=== PATIENT | female | born 1970 | race Caucasian/White ===

== ENCOUNTER → 2016-09-09 | Outpatient (REF) | payer OTHER ==
[2016-09-09 12:07] LABS: BASO % 0.9 % (0.0-1.0); EOS # 0.1 K/mm3 (0.0-0.50); EOS % 1.5 % (0.0-3.0); LARGE UNSTAINED CELL # 0.1 K/mm3 (0.0-0.4); LARGE UNSTAINED CELL % 1.9 % (0.0-4.0); LYMPH # 1.3 K/mm3 (1.5-4.5); MEAN CORPUSCULAR HEMOGLOBIN 30.2 pg (27.0-33.0); MEAN CORPUSCULAR VOLUME 94.3 fl (80.0-96.0); MONO # 0.3 K/mm3 (0.0-0.8); MONO % 7.5 % (0.0-5.0); NEUTROPHILS # 2.4 K/mm3 (1.8-7.7); NEUTROPHILS % 59.3 % (36.0-66.0); PLATELET COUNT, AUTOMATED 342 k/mm3 (150-450); RED CELL DISTRIBUTION WIDTH 12.5 % (11.5-14.5)
[2016-09-09 12:12] LABS: VITAMIN B12 LEVEL 1203 PG/ML (247-911)
[2016-09-09 12:20] LABS: ALBUMIN 4.1 GM/DL (3.2-5.2); ALBUMIN/GLOBULIN RATIO 1.41 (1.00-1.93); ALKALINE PHOSPHATASE 60 U/L (45-117); ALT/SGPT 20 U/L (12-78); ANION GAP 6 MEQ/L (8-16); AST/SGOT 16 U/L (15-37); BILIRUBIN,TOTAL 0.5 MG/DL (0.2-1.0); BLOOD UREA NITROGEN 23 MG/DL (7-18); CALCIUM LEVEL 9.3 MG/DL (8.5-10.1); CARBON DIOXIDE LEVEL 31 MEQ/L (21-32); CHLORIDE LEVEL 106 MEQ/L (98-107); CHOLESTEROL LEVEL 144 MG/DL (<200); CREATININE FOR GFR 0.77 MG/DL (0.55-1.02); GLOMERULAR FILTRATION RATE > 60.0 (>58); GLUCOSE, FASTING 88 MG/DL (70-105); POTASSIUM SERUM 4.6 MEQ/L (3.5-5.1); SODIUM LEVEL 143 MEQ/L (136-145); TRIGLYCERIDES LEVEL 47 MG/DL (<150)
== END ==
LOC: M SFHCPLAZ 09:04
PROVIDERS: ATTEND Physician Assistant
DX: R59.0 Localized enlarged lymph nodes (principal); Z13.220 Encounter for screening for lipoid disorders; R55 Syncope and collapse; Z98.84 Bariatric surgery status

== ENCOUNTER → 2017-01-31 | Outpatient (REF) | payer OTHER | LOC: M SFHCWAGY 14:08 | PROVIDERS: ATTEND Nurse Practitioner Family | DX: Z12.4 Encounter for screening for malignant neoplasm of cervix (principal) ==

== ENCOUNTER → 2017-01-31 | Outpatient (CLI) | payer OTHER ==
--- NOTE | 2017-01-31 15:57 | REPMRS ---
Patient History The patient states she had a clinical breast exam in 01/2017. Family history of prostate cancer in maternal grandfather at age 50 or over and prostate cancer in maternal uncle at age 50 or over. Benign radio exam breast specimen, January 12, 2016. Benign localization of breast nodule of the right breast, January 12, 2016. Benign stereotatic breast biopsy of the left breast, 2006. Benign excisional biopsy of both breasts, 1986. Taking hormonal contraceptives for 7 years. Digital Woman Screen Mammo: January 31, 2017 - Exam #: [id number] Bilateral CC and MLO view(s) were taken. Technologist: Deja Schmitz, Technologist Prior study comparison: December 19, 2015, right breast digital mammo diagnostic unilateral, performed at [facility]. December 16, 2015, digital woman screen mammo performed at [facility]. FINDINGS: The breast tissue is heterogeneously dense. This may lower the sensitivity of mammography. There is a needle biopsy marker clip in the left breast. There is a moderate amount of heterogeneously dense fibroglandular tissue which is fairly symmetric. There is no interval development of dominant mass, architectural distortion, or clustered microcalcification typical of malignancy. There has been no change in the appearance of the mammogram from the prior studies. ASSESSMENT: BI-RADS/ACR category 2 mammogram. Benign finding(s). Recommendation Routine screening mammogram of both breasts in 1 year (for women over age 40). This mammogram was interpreted with the aid of an FDA-approved computer-aided dectection system. Electronically Signed By: Steven Flores MD 01/31/17 [id number]
== END ==
LOC: M WHC 13:22
PROVIDERS: ATTEND Nurse Practitioner Family
DX: Z12.31 Encounter for screening mammogram for malignant neoplasm of breast (principal)

== ENCOUNTER → 2017-11-02 | Outpatient (CLI) | payer OTHER | LOC: M WUC 08:26 | DX: M25.471 Effusion, right ankle (principal); M25.571 Pain in right ankle and joints of right foot | CPT/HCPCS: 73610 ==

== ENCOUNTER → 2017-11-22 | Outpatient (REF) | payer OTHER ==
[2017-11-22 12:10] LABS: BASO # 0.1 10^3/uL (0.0-0.2); BASO % 1.5 % (0.0-1.0); EOS # 0.1 10^3/uL (0.0-0.50); EOS % 1.3 % (0.0-3.0); HEMATOCRIT 38.4 % (36.0-47.0); HEMOGLOBIN 12.5 g/dl (12.0-15.5); IMMATURE GRANULOCYTE % 0.5 % (0-3.0); LYMPH # 1.1 10^3/uL (1.5-4.5); LYMPH % 27.9 % (24.0-44.0); MEAN CORPUSCULAR HEMOGLOBIN 30.3 pg (27.0-33.0); MEAN CORPUSCULAR HGB CONC 32.6 g/dl (32.0-36.5); MONO # 0.4 10^3/uL (0.0-0.8); MONO % 9.9 % (0.0-5.0); NEUTROPHILS # 2.3 10^3/uL (1.8-7.7); NEUTROPHILS % 58.9 % (36.0-66.0); PLATELET COUNT, AUTOMATED 371 10^3/uL (150-450); RED BLOOD COUNT 4.13 10^6/uL (4.00-5.40); RED CELL DISTRIBUTION WIDTH 13.6 % (11.5-14.5); WHITE BLOOD COUNT 3.9 10^3/uL (4.0-10.0)
[2017-11-22 12:39] LABS: TOTAL 25(OH) VITAMIN D 40.3 NG/ML (30.0-100.0); VITAMIN B12 LEVEL 1270 PG/ML (247-911)
[2017-11-22 12:40] LABS: FOLATE 15.3 NG/ML (>5.4)
[2017-11-22 17:30] LABS: ALBUMIN/GLOBULIN RATIO 1.25 (1.00-1.93); ALKALINE PHOSPHATASE 70 U/L (45-117); ALT/SGPT 15 U/L (12-78); ANION GAP 6 MEQ/L (8-16); AST/SGOT 16 U/L (7-37); BILIRUBIN,TOTAL 0.5 MG/DL (0.2-1.0); BLOOD UREA NITROGEN 19 MG/DL (7-18); CALCIUM LEVEL 9.1 MG/DL (8.5-10.1); CARBON DIOXIDE LEVEL 31 MEQ/L (21-32); CHLORIDE LEVEL 107 MEQ/L (98-107); CHOLESTEROL LEVEL 141 MG/DL (<200); CHOLESTEROL RISK RATIO 1.566 (<5); CREATININE FOR GFR 0.72 MG/DL (0.55-1.30); FERRITIN 34 NG/ML (8-252); GLOMERULAR FILTRATION RATE > 60.0 (>58); GLUCOSE, FASTING 87 MG/DL (70-100); HDL CHOLESTEROL 90 MG/DL (>40); IRON (FE) 131 UG/DL (50-170); LDL CHOLESTEROL 36.8 MG/DL (<100); NON-HDL-C 51 MG/DL; PERCENT SATURATION 37.6 % (13.2-45.0); POTASSIUM SERUM 4.4 MEQ/L (3.5-5.1); SODIUM LEVEL 144 MEQ/L (136-145); THYROID STIMULATING HORMONE 0.926 uIU/ML (0.358-3.740); TOTAL IRON BINDING CAPACITY 348 UG/DL (250-450); TOTAL PROTEIN 7.2 GM/DL (6.4-8.2); TRIGLYCERIDES LEVEL 71 MG/DL (<150)
== END ==
LOC: M SFHCPLAZ 09:16
DX: Z98.84 Bariatric surgery status (principal); Z13.220 Encounter for screening for lipoid disorders; F32.9 Major depressive disorder, single episode, unspecified

== ENCOUNTER → 2017-12-21 | Outpatient (CLI) | payer OTHER ==
[2017-12-21 15:03] LABS: VITAMIN B12 LEVEL 792 PG/ML (247-911)
== END ==
LOC: M WUC 12:36
DX: Z98.84 Bariatric surgery status (principal); M79.645 Pain in left finger(s)

== ENCOUNTER → 2018-01-13 | Outpatient (CLI) | payer OTHER ==
[2018-01-13 13:16] LABS: C REACTIVE PROTEIN QUANTITATIV < 0.30 MG/DL (0.00-0.30)
[2018-01-13 13:43] LABS: ERYTHROCYTE SEDIMENTATION RATE 5 mm/hr (0-20)
== END ==
LOC: M WUC 08:58
DX: S93.401D Sprain of unspecified ligament of right ankle, subsequent encounter (principal); X58.XXXD Exposure to other specified factors, subsequent encounter; Y92.9 Unspecified place or not applicable
CPT/HCPCS: 86140

== ENCOUNTER → 2018-02-02 | Outpatient (CLI) | payer OTHER | LOC: M WHC 11:05 | DX: Z12.31 Encounter for screening mammogram for malignant neoplasm of breast (principal) ==

== ENCOUNTER → 2018-02-27 | Outpatient (REF) | payer OTHER | LOC: M SFHCWAGY 11:32 | DX: R87.612 Low grade squamous intraepithelial lesion on cytologic smear of cervix (LGSIL) (principal) ==

== ENCOUNTER 2018-02-28 09:42 | Outpatient (RCR) | payer OTHER | END 2018-03-05 | LOC: M OT 09:42 | DX: S56.114A Strain of flexor muscle, fascia and tendon of left middle finger at forearm level, initial encounter (principal); Y92.89 Other specified places as the place of occurrence of the external cause; X58.XXXA Exposure to other specified factors, initial encounter; Y93.89 Activity, other specified; Y99.8 Other external cause status | CPT/HCPCS: 97140 ==

== ENCOUNTER 2018-03-06 07:08 | Outpatient (RCR) | payer OTHER | END 2018-04-05 | LOC: M OT 03-15 07:47 | DX: S56.114A Strain of flexor muscle, fascia and tendon of left middle finger at forearm level, initial encounter (principal); Y92.89 Other specified places as the place of occurrence of the external cause; Y93.89 Activity, other specified; Y99.8 Other external cause status; X58.XXXA Exposure to other specified factors, initial encounter | CPT/HCPCS: 97140 ==

== ENCOUNTER → 2018-11-21 | Outpatient (CLI) | payer OTHER ==
[2018-11-21 09:04] LABS: HEMATOCRIT 38.3 % (36.0-47.0); HEMOGLOBIN 12.7 g/dl (12.0-15.5); MEAN CORPUSCULAR HEMOGLOBIN 30.3 pg (27.0-33.0); MEAN CORPUSCULAR HGB CONC 33.2 g/dl (32.0-36.5); MEAN CORPUSCULAR VOLUME 91.4 fl (80.0-96.0); PLATELET COUNT, AUTOMATED 356 10^3/uL (150-450); RED BLOOD COUNT 4.19 10^6/uL (4.00-5.40); WHITE BLOOD COUNT 3.6 10^3/uL (4.0-10.0)
[2018-11-21 09:39] LABS: ALBUMIN 3.9 GM/DL (3.2-5.2); ALT/SGPT 17 U/L (12-78); BILIRUBIN,TOTAL 0.6 MG/DL (0.2-1.0); BLOOD UREA NITROGEN 16 MG/DL (7-18); CALCIUM LEVEL 8.9 MG/DL (8.5-10.1); CARBON DIOXIDE LEVEL 31 MEQ/L (21-32); CHLORIDE LEVEL 104 MEQ/L (98-107); CHOLESTEROL LEVEL 139 MG/DL (<200); CHOLESTEROL RISK RATIO 1.616 (<5); CREATININE FOR GFR 0.84 MG/DL (0.55-1.30); FERRITIN 29 NG/ML (8-252); FOLATE 20.3 NG/ML (>5.4); FREE T4 0.93 NG/DL (0.76-1.46); GLOMERULAR FILTRATION RATE > 60.0 (>51); GLUCOSE, FASTING 80 MG/DL (70-100); HDL CHOLESTEROL 86 MG/DL (>40); IRON (FE) 149 UG/DL (50-170); LDL CHOLESTEROL 42 MG/DL (<100); NON-HDL-C 53 MG/DL; PERCENT SATURATION 45.2 % (13.2-45.0); POTASSIUM SERUM 4.4 MEQ/L (3.5-5.1); SODIUM LEVEL 139 MEQ/L (136-145); TOTAL IRON BINDING CAPACITY 330 UG/DL (250-450); TOTAL PROTEIN 6.9 GM/DL (6.4-8.2); TRIGLYCERIDES LEVEL 53 MG/DL (<150); VITAMIN B12 LEVEL 823 PG/ML (247-911)
== END ==
LOC: M WUC 08:11
PROVIDERS: ATTEND Physician Assistant
DX: Z13.220 Encounter for screening for lipoid disorders (principal); Z98.84 Bariatric surgery status; E55.9 Vitamin D deficiency, unspecified; F32.9 Major depressive disorder, single episode, unspecified

== ENCOUNTER → 2019-02-01 | Outpatient (CLI) | payer OTHER ==
[~2019-02-01] MED LIST: B-122500 PO; BIOT1TAB PO; CITRTAB13 PO; CVS10CAP7 PO; D200CAP2 PO; ESTRCAP PO; LISI10TA4 PO; NO ITAB PO; ULTR5TAB PO; VITA500C24 PO
--- NOTE | 2019-02-01 13:52 | REPMRS ---
Patient History The patient states she had a clinical breast exam in 01/2019. Family history of prostate cancer at age 50 or over in maternal grandfather, prostate cancer at age 50 or over in maternal uncle, prostate cancer at age 50 or over in maternal uncle. Benign radio exam breast specimen, January 12, 2016. Benign localization of breast nodule of the right breast, January 12, 2016. Benign stereotatic breast biopsy of the left breast, 2006. Benign excisional biopsy of both breasts, 1986. Taking hormonal contraceptives for 9 years. Digital Woman Screen Mammo: February 01, 2019 - Exam #: [id number] Bilateral CC and MLO view(s) were taken. Technologist: Veena Martínez, Technologist Prior study comparison: February 02, 2018, bilateral digital woman screen mammo performed at [facility]. January 31, 2017, digital woman screen mammo performed at [facility]. December 16, 2015, digital woman screen mammo performed at [facility]. FINDINGS: The breast tissue is extremely dense which could obscure a lesion on mammography. There is mild postoperative contour deformity in the right breast unchanged. A needle biopsy marker clip is again noted in the left breast. There is an extremely dense symmetrical pattern of residual fibroglandular tissue. There has been no change in the appearance of the mammogram from the previous studies. There is no interval development of dominant mass, archetectural distortion, or grouped microcalcifications suggestive of malignancy. 3-D tomosynthesis shows no additional findings. Assessment: BI-RADS/ACR category 2 mammogram. Benign Findings. Recommendation Routine screening mammogram of both breasts in 1 year (for women over age 40). This patient's Lifetime Breast Cancer RIsk is estimated at 10.2 %. This mammogram was interpreted with the aid of an FDA-approved computer-aided dectection system. Electronically Signed By: Steven Flores MD 02/01/19 8002
== END ==
LOC: M WHC 11:06
PROVIDERS: ATTEND Nurse Practitioner Family
DX: Z12.31 Encounter for screening mammogram for malignant neoplasm of breast (principal)

== ENCOUNTER → 2019-02-01 | Outpatient (REF) | payer OTHER ==
[~2019-02-01] MED LIST changes: -LISI10TA4 PO
[2019-02-03 15:01] LABS: HPV HYBRID CAPTURE II Positive (Negative)
== END ==
LOC: M SFHCWAGY 12:04
PROVIDERS: ATTEND Nurse Practitioner Family
DX: Z12.4 Encounter for screening for malignant neoplasm of cervix (principal)
CPT/HCPCS: 87624; G0123

== ENCOUNTER → 2019-02-16 | Outpatient (CLI) | payer OTHER ==
[~2019-02-16] MED LIST changes: +LISI10TA4 PO
[2019-02-16 09:30] LABS: BLOOD UREA NITROGEN 24 MG/DL (7-18); CALCIUM LEVEL 9.3 MG/DL (8.5-10.1); CARBON DIOXIDE LEVEL 29 MEQ/L (21-32); CHLORIDE LEVEL 105 MEQ/L (98-107); CREATININE, URINE 77.7 MG/DL; GLOMERULAR FILTRATION RATE > 60.0 (>51); GLUCOSE, FASTING 78 MG/DL (70-100); POTASSIUM SERUM 4.7 MEQ/L (3.5-5.1); SODIUM LEVEL 140 MEQ/L (136-145)
== END ==
LOC: M WUC 08:07
PROVIDERS: ATTEND Nurse Practitioner Family
DX: I10 Essential (primary) hypertension (principal)

== ENCOUNTER 2019-02-20 07:03 | Day surgery (SDC) | payer OTHER ==
[~2019-02-20] VITALS: Ht 165.1 cm; Wt 56.7 kg
[~2019-02-20 07:03] MED LIST changes: -LISI10TA4 PO; +NS 1,000 ML IV ONE
[2019-02-20] MEDS ORDERED: LISI10TA4 PO (07:20)
[2019-02-20] MEDS ORDERED: PROPOFOL 500 MG/50 ML VIAL As Ordered ONE (08:20)
[2019-02-20] MEDS ORDERED: LIDOCAINE 2% INJ 100 MG/5 ML SDV (FOR ANES.) As Ordered ONE (08:20)
--- NOTE | 2019-02-20 09:06 | ROOR ---
Patient Name: Mar Hernandez Procedure Date: 02/20/2019 8:09 AM Date of : 1970 Age: 48 Room: [facility] Gender: Female Note Status: Finalized Procedure: Colonoscopy Indications: Screening for colorectal malignant neoplasm Providers: Jordy Hunter MD Referring MD: Aysha Alvarenga NP Requesting Provider: Medicines: Monitored Anesthesia Care Complications: No immediate complications. Procedure: Pre-Anesthesia Assessment: - Prior to the procedure, a History and Physical was performed, and patient medications and allergies were reviewed. The patient is competent. The risks and benefits of the procedure and the sedation options and risks were discussed with the patient. All questions were answered and informed consent was obtained. Patient identification and proposed procedure were verified by the physician, the nurse and the anesthesiologist in the procedure room. Mental Status Examination: alert and oriented. Airway Examination: normal oropharyngeal airway and neck mobility. Respiratory Examination: clear to auscultation. CV Examination: normal. Prophylactic Antibiotics: The patient does not require prophylactic antibiotics. Prior Anticoagulants: The patient has taken no previous anticoagulant or antiplatelet agents. ASA Grade Assessment: II - A patient with mild systemic disease. After reviewing the risks and benefits, the patient was deemed in satisfactory condition to undergo the procedure. The anesthesia plan was to use monitored anesthesia care (MAC). Immediately prior to administration of medications, the patient was re-assessed for adequacy to receive sedatives. The heart rate, respiratory rate, oxygen saturations, blood pressure, adequacy of pulmonary ventilation, and response to care were monitored throughout the procedure. The physical status of the patient was re-assessed after the procedure. The Colonoscope was introduced through the anus and advanced to the terminal ileum, with identification of the appendiceal orifice and IC valve. The colonoscopy was performed without difficulty. The patient tolerated the procedure well. The quality of the bowel preparation was poor. The terminal ileum, ileocecal valve, appendiceal orifice, and rectum were photographed. Scope insertion time was 4 minutes. Scope withdrawal time was 8 minutes. The total duration of the procedure was 12 minutes. Findings: The perianal and digital rectal examinations were normal. The terminal ileum appeared normal. A large amount of semi-liquid semi-solid stool was found from sigmoid to ascending colon, interfering with visualization. Lavage of the area was performed using a large amount of sterile water, resulting in clearance with fair visualization. Non-bleeding external and internal hemorrhoids were found during retroflexion. The hemorrhoids were small. Impression: - Preparation of the colon was poor. - The examined portion of the ileum was normal. - Stool from sigmoid to ascending colon. - Non-bleeding external and internal hemorrhoids. - No specimens collected. Recommendation: - Patient has a contact number available for emergencies. The signs and symptoms of potential delayed complications were discussed with the patient. Return to normal activities tomorrow. Written discharge instructions were provided to the patient. - High fiber diet. - Continue present medications. - Recommend laxative daily. (script sent for senna+ colace combination capsule). - Repeat colonoscopy in 1 year because the bowel preparation was poor. - Return to GI clinic in 1 year. - Return to primary care physician. Jordy Hunter MD Jordy Hunter MD 02/20/2019 9:05:48 AM Electronically signed by Jordy Hunter MD Number of Addenda: 0 Note Initiated On: 02/20/2019 8:09 AM Estimated Blood Loss: Estimated blood loss: none.
[2019-02-20 09:15] VITALS: BP 105/70
== END 2019-02-20 09:21 | disposition home or self-care (01) ==
LOC: M OPP 07:03
PROVIDERS: ATTEND Internal Medicine Gastroenterology
DX: Z12.11 Encounter for screening for malignant neoplasm of colon (principal); K64.8 Other hemorrhoids; Z98.84 Bariatric surgery status

== ENCOUNTER 2019-02-27 11:52 | Outpatient (RCR) | payer OTHER ==
[~2019-02-27 11:52] MED LIST changes: +LISI10TA4 PO; -NS 1,000 ML IV ONE
== END 2019-03-05 ==
LOC: M PT 11:52
PROVIDERS: ATTEND Nurse Practitioner Family
DX: Z51.89 Encounter for other specified aftercare (principal); N81.10 Cystocele, unspecified; N81.2 Incomplete uterovaginal prolapse; N39.46 Mixed incontinence

== ENCOUNTER → 2019-03-12 | Outpatient (REF) | payer OTHER | LOC: M SFHCWAGY 11:48 | PROVIDERS: ATTEND Nurse Practitioner Women's Health | DX: N85.8 Other specified noninflammatory disorders of uterus (principal) ==

== ENCOUNTER 2019-04-26 14:47 | Outpatient (RCR) | payer OTHER | END 2019-05-05 | LOC: M PT 14:47 | PROVIDERS: ATTEND Nurse Practitioner Family | DX: Z51.89 Encounter for other specified aftercare (principal); N81.10 Cystocele, unspecified; N81.2 Incomplete uterovaginal prolapse; N39.46 Mixed incontinence ==

== ENCOUNTER 2019-05-22 08:00 | Outpatient (RCR) | payer OTHER | END 2019-06-05 | LOC: M PT 08:00 | PROVIDERS: ATTEND Nurse Practitioner Family | DX: N81.10 Cystocele, unspecified (principal); N39.46 Mixed incontinence ==

== ENCOUNTER → 2019-09-04 | Outpatient (CLI) | payer OTHER ==
[~2019-09-04] MED LIST changes: -CITRTAB13 PO; +CITRTAB16 PO
[2019-09-04 11:01] LABS: BLOOD UREA NITROGEN 11 MG/DL (7-18); CALCIUM LEVEL 9.2 MG/DL (8.5-10.1); CARBON DIOXIDE LEVEL 29 MEQ/L (21-32); CHLORIDE LEVEL 102 MEQ/L (98-107); CREATININE FOR GFR 0.76 MG/DL (0.55-1.30); GLOMERULAR FILTRATION RATE > 60.0 (>51); GLUCOSE, FASTING 87 MG/DL (70-100); POTASSIUM SERUM 4.5 MEQ/L (3.5-5.1); SODIUM LEVEL 137 MEQ/L (136-145)
== END ==
LOC: M WUC 09:34
PROVIDERS: ATTEND Nurse Practitioner Family
DX: I10 Essential (primary) hypertension (principal)

== ENCOUNTER → 2020-02-28 | Outpatient (REF) | payer OTHER ==
[~2020-02-28] MED LIST changes: +MAGN1CAP PO; +MIRA3350 PO
== END ==
LOC: M SFHCWAGY 17:48
PROVIDERS: ATTEND Nurse Practitioner Family
DX: Z12.4 Encounter for screening for malignant neoplasm of cervix (principal); N95.2 Postmenopausal atrophic vaginitis
CPT/HCPCS: 87624; G0123

== ENCOUNTER → 2020-02-28 | Outpatient (CLI) | payer OTHER ==
[2020-02-28 11:41] LABS: ALBUMIN 3.8 GM/DL (3.2-5.2); ALT/SGPT 16 U/L (12-78); BILIRUBIN,TOTAL 0.4 MG/DL (0.2-1.0); BLOOD UREA NITROGEN 16 MG/DL (7-18); CALCIUM LEVEL 9.1 MG/DL (8.5-10.1); CARBON DIOXIDE LEVEL 31 MEQ/L (21-32); CHLORIDE LEVEL 103 MEQ/L (98-107); CHOLESTEROL LEVEL 151 MG/DL (<200); CHOLESTEROL RISK RATIO 1.715 (<5); CREATININE FOR GFR 0.71 MG/DL (0.55-1.30); GLOMERULAR FILTRATION RATE > 60.0 (>51); GLUCOSE, FASTING 73 MG/DL (70-100); HDL CHOLESTEROL 88 MG/DL (>40); LDL CHOLESTEROL 55 MG/DL (<100); NON-HDL-C 63 MG/DL; POTASSIUM SERUM 4.7 MEQ/L (3.5-5.1); SODIUM LEVEL 138 MEQ/L (136-145); TOTAL PROTEIN 6.8 GM/DL (6.4-8.2); TRIGLYCERIDES LEVEL 42 MG/DL (<150)
[2020-02-28 11:46] LABS: TOTAL 25(OH) VITAMIN D 65.1 NG/ML (30.0-100.0)
== END ==
LOC: M WUC 08:06
PROVIDERS: ATTEND Nurse Practitioner Family
DX: I10 Essential (primary) hypertension (principal); E55.9 Vitamin D deficiency, unspecified

== ENCOUNTER → 2020-02-28 | Outpatient (CLI) | payer OTHER ==
--- NOTE | 2020-02-28 14:01 | REPMRS ---
Patient History The patient states she had a clinical breast exam in 02/2020. Family history of prostate cancer at age 50 or over in maternal grandfather, prostate cancer at age 50 or over in maternal uncle, prostate cancer at age 50 or over in maternal uncle. Benign radio exam breast specimen, January 12, 2016. Benign localization of breast nodule of the right breast, January 12, 2016. Benign stereotatic breast biopsy of the left breast, 2006. Benign excisional biopsy of both breasts, 1986. Taking hormonal contraceptives for 10 years. 3D TOMOSYNTHESIS WAS PERFORMED. The [facility] lifetime risk for breast cancer is 10.1%. DESMOND Magallanes Digital Woman Screen Mammo: February 28, 2020 - Exam #: [id number] Bilateral CC and MLO view(s) were taken. Technologist: Deja Schmitz, Technologist Prior study comparison: February 01, 2019, bilateral digital woman screen mammo performed at [facility]. February 02, 2018, bilateral digital woman screen mammo performed at [facility]. FINDINGS: The breast tissue is extremely dense which could obscure a lesion on mammography. There has been no change in the appearance of the mammogram from the prior studies. There is a moderate amount of residual fibroglandular tissue which is fairly symmetric. There is no interval development of dominant mass, areas of architectural distortion, or clustered microcalcification typical of malignancy. Assessment: BI-RADS/ACR category 1 mammogram. Negative Mammogram. Recommendation Routine screening mammogram in 1 year (for women over age 40). This mammogram was interpreted with the aid of an FDA-approved computer-aided dectection system. Electronically Signed By: Steven Flores MD 02/28/20 1400
== END ==
LOC: M WHC 11:22
PROVIDERS: ATTEND Nurse Practitioner Family
DX: Z12.31 Encounter for screening mammogram for malignant neoplasm of breast (principal); Z86.018 Personal history of other benign neoplasm; Z79.3 Long term (current) use of hormonal contraceptives

== ENCOUNTER → 2020-03-13 | Outpatient (CLI) | payer OTHER ==
[~2020-03-13] MED LIST changes: -MAGN1CAP PO; -MIRA3350 PO
[2020-03-13 19:50] LABS: HEMATOCRIT 42.1 % (36.0-47.0); HEMOGLOBIN 13.6 g/dl (12.0-15.5); MEAN CORPUSCULAR HEMOGLOBIN 29.6 pg (27.0-33.0); MEAN CORPUSCULAR HGB CONC 32.3 g/dl (32.0-36.5); MEAN CORPUSCULAR VOLUME 91.5 fl (80.0-96.0); PLATELET COUNT, AUTOMATED 471 10^3/uL (150-450); WHITE BLOOD COUNT 7.4 10^3/uL (4.0-10.0)
[2020-03-13 20:14] LABS: BLOOD UREA NITROGEN 16 MG/DL (7-18); CALCIUM LEVEL 9.1 MG/DL (8.5-10.1); CARBON DIOXIDE LEVEL 33 MEQ/L (21-32); CHLORIDE LEVEL 98 MEQ/L (98-107); FERRITIN 22 NG/ML (8-252); GLOMERULAR FILTRATION RATE > 60.0 (>51); GLUCOSE, FASTING 86 MG/DL (70-100); IRON (FE) 100 UG/DL (50-170); MAGNESIUM LEVEL 2.5 MG/DL (1.8-2.4); PERCENT SATURATION 27.4 % (13.2-45.0); POTASSIUM SERUM 4.4 MEQ/L (3.5-5.1); SODIUM LEVEL 136 MEQ/L (136-145); TOTAL IRON BINDING CAPACITY 365 UG/DL (250-450)
[2020-03-13 20:20] LABS: FOLATE 20.2 NG/ML; TOTAL 25(OH) VITAMIN D 50.4 NG/ML (30.0-100.0); VITAMIN B12 LEVEL > 2000 PG/ML
[2020-03-13 20:23] LABS: CREATININE, URINE 59.7 MG/DL; MAU/CREAT RATIO 18.4 MCG/MG (0.0-30.0)
== END ==
LOC: M WUC 16:10
PROVIDERS: ATTEND Nurse Practitioner Family
DX: I10 Essential (primary) hypertension (principal); Z98.84 Bariatric surgery status

== ENCOUNTER → 2020-03-24 | Outpatient (REF) | payer OTHER | LOC: M SFHCWAGY 13:32 | PROVIDERS: ATTEND Obstetrics & Gynecology | DX: R87.612 Low grade squamous intraepithelial lesion on cytologic smear of cervix (LGSIL) (principal) ==

== ENCOUNTER → 2020-04-17 | Outpatient (CLI) | payer OTHER ==
[~2020-04-17] MED LIST changes: +MAGN1CAP PO; +MIRA3350 PO
== END ==
LOC: M LABSMTC 11:37
PROVIDERS: ATTEND Anesthesiology
DX: Z01.812 Encounter for preprocedural laboratory examination (principal); Z20.828 Contact with and (suspected) exposure to other viral communicable diseases

== ENCOUNTER 2020-04-22 07:36 | Day surgery (SDC) | payer OTHER ==
[~2020-04-22] VITALS: Ht 165.1 cm; Wt 55.8 kg
[~2020-04-22 07:36] MED LIST changes: +NS 1,000 ML IV ONE
[2020-04-22] MEDS ORDERED: LIDOCAINE 2% 100MG/5ML SDV (FOR ANES.) As Ordered ONE (07:56)
[2020-04-22] MEDS ORDERED: propofoL 200 MG/20 ML VIAL As Ordered ONE (07:56)
[2020-04-22 08:55] VITALS: BP 110/63
--- NOTE | 2020-04-22 08:59 | ROOR ---
Patient Name: Mar Hernandez Procedure Date: 04/22/2020 8:04 AM Date of : 1970 Age: 49 Room: [facility] Gender: Female Note Status: Finalized Procedure: Colonoscopy Indications: Screening for colorectal malignant neoplasm Providers: Jordy Hunter MD Referring MD: Aysha Alvarenga NP Requesting Provider: Medicines: Monitored Anesthesia Care Complications: No immediate complications. Procedure: Pre-Anesthesia Assessment: - Prior to the procedure, a History and Physical was performed, and patient medications and allergies were reviewed. The patient is competent. The risks and benefits of the procedure and the sedation options and risks were discussed with the patient. All questions were answered and informed consent was obtained. Patient identification and proposed procedure were verified by the physician, the nurse and the anesthesiologist in the procedure room. Mental Status Examination: alert and oriented. Airway Examination: normal oropharyngeal airway and neck mobility. Respiratory Examination: clear to auscultation. CV Examination: normal. Prophylactic Antibiotics: The patient does not require prophylactic antibiotics. Prior Anticoagulants: The patient has taken no previous anticoagulant or antiplatelet agents. ASA Grade Assessment: II - A patient with mild systemic disease. After reviewing the risks and benefits, the patient was deemed in satisfactory condition to undergo the procedure. The anesthesia plan was to use monitored anesthesia care (MAC). Immediately prior to administration of medications, the patient was re-assessed for adequacy to receive sedatives. The heart rate, respiratory rate, oxygen saturations, blood pressure, adequacy of pulmonary ventilation, and response to care were monitored throughout the procedure. The physical status of the patient was re-assessed after the procedure. The Colonoscope was introduced through the anus and advanced to the terminal ileum, with identification of the appendiceal orifice and IC valve. The colonoscopy was performed without difficulty. The patient tolerated the procedure well. The quality of the bowel preparation was good. The terminal ileum, ileocecal valve, appendiceal orifice, and rectum were photographed. Scope insertion time was 4 minutes. Scope withdrawal time was 9 minutes. The total duration of the procedure was 15 minutes. Findings: The perianal and digital rectal examinations were normal. The terminal ileum appeared normal. Two sessile polyps were found in the recto-sigmoid colon. The polyps were 3 to 5 mm in size. These polyps were removed with a jumbo cold forceps. Resection and retrieval were complete. Verification of patient identification for the specimen was done by the physician and nurse using the patient's name, date and medical record number. Scattered medium-mouthed diverticula were found in the sigmoid colon and ascending colon. There was no evidence of diverticular bleeding. Non-bleeding external and internal hemorrhoids were found during retroflexion. The hemorrhoids were medium-sized. Impression: - The examined portion of the ileum was normal. - Two 3 to 5 mm polyps at the recto-sigmoid colon, removed with a jumbo cold forceps. Resected and retrieved. - Moderate diverticulosis in the sigmoid colon and in the ascending colon. There was no evidence of diverticular bleeding. - Non-bleeding external and internal hemorrhoids. Recommendation: - Patient has a contact number available for emergencies. The signs and symptoms of potential delayed complications were discussed with the patient. Return to normal activities tomorrow. Written discharge instructions were provided to the patient. - High fiber diet. - Continue present medications. - Await pathology results. - Repeat colonoscopy in 5-10 years for surveillance based on pathology results. - Telephone GI clinic for pathology results in 2 weeks. - Return to primary care physician. Jordy Hunter MD Jordy Hunter MD 04/22/2020 8:58:41 AM Electronically signed by Jordy Hunter MD Number of Addenda: 0 Note Initiated On: 04/22/2020 8:04 AM Estimated Blood Loss: Estimated blood loss was minimal.
== END 2020-04-22 09:09 | disposition home or self-care (01) ==
LOC: M OPP 07:36
PROVIDERS: ATTEND Internal Medicine Gastroenterology
DX: Z12.11 Encounter for screening for malignant neoplasm of colon (principal); K63.5 Polyp of colon; K64.8 Other hemorrhoids; K57.30 Diverticulosis of large intestine without perforation or abscess without bleeding; Z79.899 Other long term (current) drug therapy; Z98.84 Bariatric surgery status

== ENCOUNTER → 2021-03-03 | Outpatient (CLI) | payer OTHER ==
[~2021-03-03] MED LIST changes: +LISI10TA22 PO; -LISI10TA4 PO; -NS 1,000 ML IV ONE
--- NOTE | 2021-03-03 11:24 | REPMRS ---
Patient History The patient states she had a clinical breast exam in February 2021. Family history of prostate cancer at age 50 or over in maternal grandfather, prostate cancer at age 50 or over in maternal uncle, prostate cancer at age 50 or over in maternal uncle. Benign radio exam breast specimen, January 12, 2016. Benign localization of breast nodule of the right breast, January 12, 2016. Benign stereotatic breast biopsy of the left breast, 2006. Benign excisional biopsy of both breasts, 1986. Taking hormonal contraceptives for 11 years. Patient states no breast complaints today. Patient has signed MRS History Sheet. Digital Woman Screen Mammo: March 03, 2021 - Exam #: [id number] Bilateral CC and MLO view(s) were taken. Technologist: Veena Martínez, Technologist Prior study comparison: February 28, 2020, bilateral digital woman screen mammo performed at [facility]. February 01, 2019, bilateral digital woman screen mammo performed at [facility]. FINDINGS: The breast tissue is extremely dense which could obscure a lesion on mammography. Screening. Digital screening (2D) mammography was performed bilaterally in the CC and MLO projections. Additionally, breast tomosynthesis (3D mammography) was performed bilaterally in the CC and MLO projections. Todays exam was compared to the prior exam/exams. By history, the patient has no complaints of a palpable breast abnormality or other significant breast complaints. The breasts are unchanged in size and shape. Once again, dense heterogenous fibroglandular elements are seen bilaterally in a stable appearing pattern but to such a degree that the sensitivity of the mammogram in detecting cancer is decreased.There are no glendy-soft tissue densities or spiculated masses. There is no internal architectural distortion. Once again, stable benign appearing calcifications are seen.There are no suspicious glendy-calcific clusters. Skin thickening or nipple retraction is not present. IMPRESSION: BI-RADS Category 2- Benign Findings. There is no evidence of malignant alteration of the breasts. Followup examination recommended in one year. The Volpara volumetric breast density category is D, the breasts are extremely dense which lowers the sensitivity of mammography. This mammogram was read with the assistance of [employer],an FDA approved computer aided detection system for mammography. The lifetime Tyrer-Cuzick score is 9.8 % Due to the density of the breasts or Tyrer Cuzick score of 20% or greater, MRI/whole breast screening ultrasound is warranted. Negative x-ray reports should not delay surgical consultation if a dominant or clinically suspicious mass is present. Not all breast cancers can be identified by mammography. Therefore, we recommend that you continue to perform regular breast self-examination and physical examination and then promptly contact your physician of any concerns or changes. Adenosis and dense breasts may obscure an underlying neoplasm. Assessment: BI-RADS/ACR category 2 mammogram. Benign Findings. Recommendation Routine screening mammogram of both breasts in 1 year. Electronically Signed By: Abdoul Pennington DO 03/03/21 1124
== END ==
LOC: M WHC 10:18
PROVIDERS: ATTEND Nurse Practitioner Women's Health
DX: Z12.31 Encounter for screening mammogram for malignant neoplasm of breast (principal)

== ENCOUNTER → 2021-03-03 | Outpatient (REF) | payer OTHER | LOC: M SFHCWAGY 13:08 | PROVIDERS: ATTEND Nurse Practitioner Women's Health | DX: Z12.4 Encounter for screening for malignant neoplasm of cervix (principal); Z01.419 Encounter for gynecological examination (general) (routine) without abnormal findings ==

== ENCOUNTER → 2021-03-25 | Outpatient (CLI) | payer OTHER ==
[2021-03-25 10:56] LABS: HEMATOCRIT 41.5 % (36.0-47.0); HEMOGLOBIN 13.6 g/dl (12.0-15.5); MEAN CORPUSCULAR HEMOGLOBIN 30.6 pg (27.0-33.0); MEAN CORPUSCULAR HGB CONC 32.8 g/dl (32.0-36.5); MEAN CORPUSCULAR VOLUME 93.5 fl (80.0-96.0); PLATELET COUNT, AUTOMATED 422 10^3/uL (150-450); RED BLOOD COUNT 4.44 10^6/uL (4.00-5.40); WHITE BLOOD COUNT 5.7 10^3/uL (4.0-10.0)
[2021-03-25 12:32] LABS: ALT/SGPT 18 U/L (12-78); BILIRUBIN,TOTAL 0.7 MG/DL (0.2-1.0); BLOOD UREA NITROGEN 15 MG/DL (7-18); CALCIUM LEVEL 9.4 MG/DL (8.5-10.1); CARBON DIOXIDE LEVEL 30 MEQ/L (21-32); CHLORIDE LEVEL 103 MEQ/L (98-107); CHOLESTEROL LEVEL 161 MG/DL (<200); CREATININE FOR GFR 0.86 MG/DL (0.55-1.30); FERRITIN 51 NG/ML (8-252); FOLATE 17.7 NG/ML; FREE T4 0.99 NG/DL (0.76-1.46); GLOMERULAR FILTRATION RATE > 60.0 (>51); GLUCOSE, FASTING 90 MG/DL (70-100); HDL CHOLESTEROL 92 MG/DL (>40); IRON (FE) 95 UG/DL (50-170); LDL CHOLESTEROL 58 MG/DL (<100); NON-HDL-C 69 MG/DL; PERCENT SATURATION 25.3 % (13.2-45.0); POTASSIUM SERUM 4.3 MEQ/L (3.5-5.1); SODIUM LEVEL 138 MEQ/L (136-145); TOTAL 25(OH) VITAMIN D 72.5 NG/ML (30.0-100.0); TOTAL IRON BINDING CAPACITY 375 UG/DL (250-450); TOTAL PROTEIN 7.2 GM/DL (6.4-8.2); TRIGLYCERIDES LEVEL 57 MG/DL (<150); VITAMIN B12 LEVEL > 2000 PG/ML
[2021-03-25 13:09] LABS: MAU/CREAT RATIO 1834.9 MCG/MG (0.0-30.0)
== END ==
LOC: M WUC 08:18
PROVIDERS: ATTEND Nurse Practitioner Family
DX: I10 Essential (primary) hypertension (principal); Z98.84 Bariatric surgery status; E55.9 Vitamin D deficiency, unspecified

== ENCOUNTER → 2021-04-01 | Outpatient (CLI) | payer OTHER ==
[2021-04-01 14:24] LABS: APPEARANCE, URINE CLEAR (CLEAR); BACTERIA, URINE AUTO 1+ (NEGATIVE); BILIRUBIN, URINE AUTO NEGATIVE (NEGATIVE); BLOOD, URINE BLOOD NEGATIVE (NEGATIVE); COLOR, URINE YELLOW (YELLOW); GLUCOSE, URINE (UA) AUTO NEGATIVE (NEGATIVE); KETONE, URINE AUTO NEGATIVE (NEGATIVE); LEUKOCYTE ESTERASE, URINE AUTO TRACE (NEGATIVE); MUCUS, URINE SMALL (NEGATIVE); NITRITE, URINE AUTO NEGATIVE (NEGATIVE); PROTEIN, URINE AUTO NEGATIVE (NEGATIVE); RBC, URINE AUTO 0 /HPF (0-3); SPECIFIC GRAVITY URINE AUTO 1.006 (1.002-1.035); SQUAMOUS EPITHELIAL CELL UR AU 1 /HPF (0-6); UROBILINOGEN, URINE AUTO 0.2 mg/dL (0.0-2.0); WBC, URINE AUTO 1 /HPF (0-3)
[2021-04-01 14:44] LABS: MALB URINE SIEMENS 41.9 MG/L; MAU/CREAT RATIO 93.1 MCG/MG (0.0-30.0)
== END ==
LOC: M PLALAB 08:40
PROVIDERS: ATTEND Nurse Practitioner Family
DX: R80.9 Proteinuria, unspecified (principal)

== ENCOUNTER → 2021-06-17 | Outpatient (CLI) | payer OTHER ==
[2021-06-17 21:36] LABS: APPEARANCE, URINE CLEAR (CLEAR); BACTERIA, URINE AUTO NEGATIVE (NEGATIVE); BILIRUBIN, URINE AUTO NEGATIVE (NEGATIVE); BLOOD, URINE BLOOD NEGATIVE (NEGATIVE); COLOR, URINE YELLOW (YELLOW); GLUCOSE, URINE (UA) AUTO NEGATIVE (NEGATIVE); KETONE, URINE AUTO NEGATIVE (NEGATIVE); LEUKOCYTE ESTERASE, URINE AUTO NEGATIVE (NEGATIVE); MUCUS, URINE SMALL (NEGATIVE); NITRITE, URINE AUTO NEGATIVE (NEGATIVE); PROTEIN, URINE AUTO NEGATIVE (NEGATIVE); RBC, URINE AUTO 1 /HPF (0-3); SPECIFIC GRAVITY URINE AUTO 1.008 (1.002-1.035); SQUAMOUS EPITHELIAL CELL UR AU 0 /HPF (0-6); UROBILINOGEN, URINE AUTO 0.2 mg/dL (0.0-2.0); WBC, URINE AUTO 0 /HPF (0-3)
[2021-06-17 21:42] LABS: CREATININE,RANDOM URINE 29.5 MG/DL; TOTAL PROTEIN,RANDOM URINE 5.7 MG/DL (0.0-12.0)
== END ==
LOC: M WUC 15:53
PROVIDERS: ATTEND Physician Assistant
DX: R80.9 Proteinuria, unspecified (principal)

== ENCOUNTER → 2021-06-23 | Outpatient (REF) | payer OTHER | LOC: M SFHCADAM 14:57 | PROVIDERS: ATTEND Physician Assistant | DX: I10 Essential (primary) hypertension (principal) ==

== ENCOUNTER → 2021-10-27 | Outpatient (REF) | payer OTHER ==
[~2021-10-27] MED LIST changes: +CITRACAL MAXIMU1 TAB PO; -CITRTAB16 PO
[2021-10-27 16:30] LABS: HEMATOCRIT 44.1 % (36.0-47.0); HEMOGLOBIN 14.1 g/dl (12.0-15.5); MEAN CORPUSCULAR HEMOGLOBIN 29.1 pg (27.0-33.0); MEAN CORPUSCULAR VOLUME 91.1 fl (80.0-96.0); PLATELET COUNT, AUTOMATED 426 10^3/uL (150-450); RED BLOOD COUNT 4.84 10^6/uL (4.00-5.40); WHITE BLOOD COUNT 10.2 10^3/uL (4.0-10.0)
[2021-10-27 16:52] LABS: BLOOD UREA NITROGEN 10 MG/DL (7-18); CALCIUM LEVEL 11.5 MG/DL (8.5-10.1); CARBON DIOXIDE LEVEL 31 MEQ/L (21-32); CHLORIDE LEVEL 98 MEQ/L (98-107); CREATININE FOR GFR 0.71 MG/DL (0.55-1.30); GLOMERULAR FILTRATION RATE > 60.0 (>51); GLUCOSE, FASTING 83 MG/DL (70-100); POTASSIUM SERUM 4.9 MEQ/L (3.5-5.1); SODIUM LEVEL 137 MEQ/L (136-145)
[2021-10-27 17:04] LABS: CREATININE, URINE 19.9 MG/DL; MAU/CREAT RATIO 55.2 MCG/MG (0.0-30.0)
[2021-10-27 17:24] LABS: HEMOGLOBIN A1c 5.3 %
== END ==
LOC: M SFHCADAM 13:56
PROVIDERS: ATTEND Physician Assistant
DX: R80.9 Proteinuria, unspecified (principal)

== ENCOUNTER → 2021-11-10 | Outpatient (REF) | payer OTHER ==
[2021-11-10 16:10] LABS: HEMATOCRIT 42.6 % (36.0-47.0); HEMOGLOBIN 13.5 g/dl (12.0-15.5); MEAN CORPUSCULAR HEMOGLOBIN 29.1 pg (27.0-33.0); MEAN CORPUSCULAR HGB CONC 31.7 g/dl (32.0-36.5); MEAN CORPUSCULAR VOLUME 91.8 fl (80.0-96.0); PLATELET COUNT, AUTOMATED 373 10^3/uL (150-450); RED BLOOD COUNT 4.64 10^6/uL (4.00-5.40); WHITE BLOOD COUNT 8.9 10^3/uL (4.0-10.0)
[2021-11-10 16:16] LABS: ALBUMIN 3.5 GM/DL (3.2-5.2); ALT/SGPT 26 U/L (12-78); BILIRUBIN,TOTAL 0.3 MG/DL (0.2-1.0); BLOOD UREA NITROGEN 18 MG/DL (7-18); CALCIUM LEVEL 11.1 MG/DL (8.5-10.1); CARBON DIOXIDE LEVEL 33 MEQ/L (21-32); CHLORIDE LEVEL 101 MEQ/L (98-107); CREATININE FOR GFR 0.72 MG/DL (0.55-1.30); GLOMERULAR FILTRATION RATE > 60.0 (>51); GLUCOSE, FASTING 100 MG/DL (70-100); POTASSIUM SERUM 4.8 MEQ/L (3.5-5.1); SODIUM LEVEL 137 MEQ/L (136-145); TOTAL PROTEIN 6.8 GM/DL (6.4-8.2)
== END ==
LOC: M SFHCADAM 13:00
PROVIDERS: ATTEND Physician Assistant
DX: R80.9 Proteinuria, unspecified (principal); I10 Essential (primary) hypertension; E55.9 Vitamin D deficiency, unspecified; Z13.220 Encounter for screening for lipoid disorders; Z98.84 Bariatric surgery status

== ENCOUNTER → 2021-11-20 | Outpatient (REF) | payer OTHER ==
[2021-11-20 12:47] LABS: BASO # 0.1 10^3/uL (0.0-0.2); BASO % 0.5 % (0.0-1.0); EOS % 0.4 % (0.0-3.0); HEMATOCRIT 43.5 % (36.0-47.0); HEMOGLOBIN 13.8 g/dl (12.0-15.5); LYMPH # 1.1 10^3/uL (1.5-5.0); LYMPH % 12.3 % (24.0-44.0); MEAN CORPUSCULAR HEMOGLOBIN 28.7 pg (27.0-33.0); MEAN CORPUSCULAR HGB CONC 31.7 g/dl (32.0-36.5); MEAN CORPUSCULAR VOLUME 90.4 fl (80.0-96.0); MONO # 0.9 10^3/uL (0.0-0.8); MONO % 9.3 % (2.0-8.0); NEUTROPHILS % 77.2 % (36.0-66.0); PLATELET COUNT, AUTOMATED 376 10^3/uL (150-450); RED BLOOD COUNT 4.81 10^6/uL (4.00-5.40); WHITE BLOOD COUNT 9.1 10^3/uL (4.0-10.0)
[2021-11-20 13:26] LABS: ALBUMIN 3.6 GM/DL (3.2-5.2); ALT/SGPT 24 U/L (12-78); AMYLASE 50 U/L (25-115); BILIRUBIN,TOTAL 0.6 MG/DL (0.2-1.0); BLOOD UREA NITROGEN 12 MG/DL (7-18); CALCIUM LEVEL 11.6 MG/DL (8.5-10.1); CARBON DIOXIDE LEVEL 28 MEQ/L (21-32); CHLORIDE LEVEL 101 MEQ/L (98-107); CREATININE FOR GFR 0.64 MG/DL (0.55-1.30); FREE T4 1.07 NG/DL (0.76-1.46); GLOMERULAR FILTRATION RATE > 60.0 (>51); GLUCOSE, FASTING 90 MG/DL (70-100); LIPASE 163 U/L (73-393); POTASSIUM SERUM 4.9 MEQ/L (3.5-5.1); SODIUM LEVEL 136 MEQ/L (136-145); TOTAL PROTEIN 6.8 GM/DL (6.4-8.2)
[2021-11-20 13:27] LABS: TOTAL 25(OH) VITAMIN D 106.1 NG/ML (30.0-100.0)
== END ==
LOC: M SFHCADAM 09:48
PROVIDERS: ATTEND Physician Assistant
DX: E83.52 Hypercalcemia (principal); R80.9 Proteinuria, unspecified; I10 Essential (primary) hypertension; E55.9 Vitamin D deficiency, unspecified; Z13.220 Encounter for screening for lipoid disorders; Z98.84 Bariatric surgery status; R10.13 Epigastric pain; R11.0 Nausea

== ENCOUNTER → 2021-12-01 | Outpatient (CLI) | payer OTHER ==
[~2021-12-01] MED LIST changes: +GASTROGRAFIN SOLUTION 30ML (Q9963) As Ordered ONE; +ISOVUE-370 76% 100ML VIAL As Ordered ONE
== END ==
LOC: M RAD 08:20
PROVIDERS: ATTEND Physician Assistant Surgical
DX: R10.9 Unspecified abdominal pain (principal); Z98.84 Bariatric surgery status
CPT/HCPCS: 74177; Q9963; Q9967

== ENCOUNTER → 2021-12-04 | Outpatient (CLI) | payer OTHER ==
[~2021-12-04] MED LIST changes: -GASTROGRAFIN SOLUTION 30ML (Q9963) As Ordered ONE; -ISOVUE-370 76% 100ML VIAL As Ordered ONE
== END ==
LOC: M CARPUL 08:03
PROVIDERS: ATTEND Physician Assistant
DX: I35.1 Nonrheumatic aortic (valve) insufficiency (principal)

== ENCOUNTER → 2022-01-06 | Outpatient (CLI) | payer OTHER | LOC: M LABSMTC 09:50 | PROVIDERS: ATTEND Anesthesiology | DX: Z11.52 Encounter for screening for COVID-19 (principal) ==

== ENCOUNTER 2022-01-08 10:47 | Day surgery (SDC) | payer OTHER ==
[~2022-01-08] VITALS: Ht 165.1 cm; Wt 56.7 kg
[~2022-01-08 10:47] MED LIST changes: +NS 1,000 ML IV ONE
[2022-01-08] MEDS ORDERED: LIDOCAINE 2% 100MG/5ML SDV (FOR ANES.) As Ordered ONE (11:57)
[2022-01-08] MEDS ORDERED: propofoL 200 MG/20 ML VIAL As Ordered ONE (11:57)
[2022-01-08 13:18] VITALS: BP 112/73
== END 2022-01-08 13:27 | disposition home or self-care (01) ==
LOC: M OPP 10:47
PROVIDERS: ATTEND Internal Medicine Gastroenterology
DX: R10.10 Upper abdominal pain, unspecified (principal); C78.7 Secondary malignant neoplasm of liver and intrahepatic bile duct; R93.3 Abnormal findings on diagnostic imaging of other parts of digestive tract; K57.30 Diverticulosis of large intestine without perforation or abscess without bleeding; K64.8 Other hemorrhoids; K63.3 Ulcer of intestine; I10 Essential (primary) hypertension; L40.9 Psoriasis, unspecified; Z79.899 Other long term (current) drug therapy; Z82.49 Family history of ischemic heart disease and other diseases of the circulatory system; Z80.42 Family history of malignant neoplasm of prostate

== ENCOUNTER → 2022-04-23 | Outpatient (CLI) | payer OTHER ==
[~2022-04-23] MED LIST changes: +FURO20TA2; +LIDOCAINE 1% MDV 20ML VIAL As Ordered ONE; -NS 1,000 ML IV ONE; +vitamin c gummies PO
[2022-04-23 10:46] VITALS: BP 124/80
== END ==
LOC: M IRPRO 09:30
PROVIDERS: ATTEND Specialist
DX: R18.8 Other ascites (principal)

== ENCOUNTER → 2022-05-07 | Outpatient (CLI) | payer OTHER ==
[~2022-05-07] MED LIST changes: -LIDOCAINE 1% MDV 20ML VIAL As Ordered ONE
[2022-05-07 11:00] VITALS: BP 111/78
== END ==
LOC: M IRPRO 09:46
PROVIDERS: ATTEND Specialist
DX: R18.8 Other ascites (principal)

== ENCOUNTER → 2022-05-12 | Outpatient (CLI) | payer OTHER ==
[2022-05-12 14:35] VITALS: BP 110/79
== END ==
LOC: M IRPRO 13:47
PROVIDERS: ATTEND Specialist
DX: R18.8 Other ascites (principal)

== ENCOUNTER → 2022-05-19 | Outpatient (CLI) | payer OTHER ==
[2022-05-19 10:07] LABS: HEMATOCRIT 32.6 % (36.0-47.0); HEMOGLOBIN 9.6 g/dl (12.0-15.5); LYMPH # 0.4 10^3/uL (1.5-5.0); LYMPH % 5.9 % (24.0-44.0); MEAN CORPUSCULAR HEMOGLOBIN 29.1 pg (27.0-33.0); MEAN CORPUSCULAR HGB CONC 29.4 g/dl (32.0-36.5); MEAN CORPUSCULAR VOLUME 98.8 fl (80.0-96.0); MONO # 0.9 10^3/uL (0.0-0.8); MONO % 13.5 % (2.0-8.0); NEUTROPHILS # 5.3 10^3/uL (1.5-8.5); NEUTROPHILS % 80.1 % (36.0-66.0); PLATELET COUNT, AUTOMATED 732 10^3/uL (150-450); WHITE BLOOD COUNT 6.6 10^3/uL (4.0-10.0)
[2022-05-19 10:32] LABS: INR 0.95; PROTHROMBIN TIME 12.9 SECONDS (12.5-14.5)
[2022-05-19 11:49] LABS: ALBUMIN 1.6 G/DL (3.2-5.2); ALKALINE PHOSPHATASE 150 U/L (46-116); ALT/SGPT < 9 U/L (7.0-40); AST/SGOT 46 U/L (<34); BILIRUBIN,TOTAL 0.2 MG/DL (0.3-1.2); BLOOD UREA NITROGEN 23 MG/DL (9-23); CALCIUM LEVEL 7.7 MG/DL (8.5-10.1); CARBON DIOXIDE LEVEL 29 MMOL/L (20-31); CHLORIDE LEVEL 103 MMOL/L (98-107); CREATININE FOR GFR 0.74 MG/DL (0.55-1.30); GLOMERULAR FILTRATION RATE > 60.0 (>51); GLUCOSE, FASTING 108 MG/DL (60-100); POTASSIUM SERUM 5.9 MMOL/L (3.5-5.1); SODIUM LEVEL 139 MMOL/L (136-145); TOTAL PROTEIN 4.8 G/DL (5.7-8.2)
== END ==
LOC: M WUC 08:26
PROVIDERS: ATTEND Specialist
DX: R16.0 Hepatomegaly, not elsewhere classified (principal)

== ENCOUNTER → 2022-05-21 | Outpatient (CLI) | payer OTHER ==
[~2022-05-21] MED LIST changes: +ELIQ5TAB PO
[2022-05-21 11:15] VITALS: BP 116/76
[2022-05-21 12:01] LABS: ASCITES FL COLOR PALE YELLOW (COLORLESS); SOURCE, BODY FLUID ASCITES
[2022-05-21 12:02] LABS: APPEARANCE, BODY FLUID CLEAR (CLEAR)
== END ==
LOC: M IRPRO 10:01
PROVIDERS: ATTEND Specialist
DX: R18.8 Other ascites (principal)

== ENCOUNTER → 2022-05-28 | Outpatient (CLI) | payer OTHER ==
[~2022-05-28] MED LIST changes: +LIDOCAINE 1% MDV 20ML VIAL As Ordered ONE
[2022-05-28 11:00] VITALS: BP 116/75
== END ==
LOC: M IRPRO 10:04
PROVIDERS: ATTEND Specialist
DX: R18.8 Other ascites (principal)

== ENCOUNTER → 2022-06-04 | Outpatient (CLI) | payer OTHER ==
[~2022-06-04] MED LIST changes: -LIDOCAINE 1% MDV 20ML VIAL As Ordered ONE
[2022-06-04 10:50] VITALS: BP 102/74
== END ==
LOC: M IRPRO 09:55
PROVIDERS: ATTEND Specialist
DX: R18.8 Other ascites (principal)

== ENCOUNTER → 2022-06-11 | Outpatient (CLI) | payer OTHER ==
[~2022-06-11] MED LIST changes: +LIDOCAINE 1% MDV 20ML VIAL As Ordered ONE
[2022-06-11 11:00] VITALS: BP 104/76
== END ==
LOC: M IRPRO 10:13
PROVIDERS: ATTEND Specialist
DX: R18.8 Other ascites (principal)

== ENCOUNTER → 2022-06-17 | Outpatient (REF) | payer OTHER ==
[~2022-06-17] MED LIST changes: -LIDOCAINE 1% MDV 20ML VIAL As Ordered ONE; +METH5TA
== END ==
LOC: M PLALAB 15:51
PROVIDERS: ATTEND Nurse Practitioner Family
DX: Z12.4 Encounter for screening for malignant neoplasm of cervix (principal)
CPT/HCPCS: 87624; G0123

== ENCOUNTER → 2022-06-18 | Outpatient (CLI) | payer OTHER ==
[~2022-06-18] MED LIST changes: +LIDOCAINE 1% MDV 20ML VIAL As Ordered ONE
[2022-06-18 10:30] VITALS: BP 99/73
== END ==
LOC: M IRPRO 09:52
PROVIDERS: ATTEND Specialist
DX: R18.8 Other ascites (principal)

== ENCOUNTER → 2022-06-25 | Outpatient (CLI) | payer OTHER ==
[2022-06-25 10:35] VITALS: BP 106/86
== END ==
LOC: M IRPRO 09:45
PROVIDERS: ATTEND Specialist
DX: R18.8 Other ascites (principal)

== ENCOUNTER → 2022-07-02 | Outpatient (CLI) | payer OTHER ==
[2022-07-02 10:25] VITALS: BP 130/95
== END ==
LOC: M IRPRO 09:45
PROVIDERS: ATTEND Specialist
DX: R18.8 Other ascites (principal)

== ENCOUNTER → 2022-07-08 | Outpatient (CLI) | payer OTHER ==
[~2022-07-08] MED LIST changes: -LIDOCAINE 1% MDV 20ML VIAL As Ordered ONE
== END ==
LOC: M WHC 08:45
PROVIDERS: ATTEND Nurse Practitioner Family
DX: R18.8 Other ascites (principal)

== ENCOUNTER → 2022-07-09 | Outpatient (CLI) | payer OTHER ==
[2022-07-09 11:05] VITALS: BP 120/84
== END ==
LOC: M IRPRO 10:26
PROVIDERS: ATTEND Specialist
DX: R18.8 Other ascites (principal)

== ENCOUNTER → 2022-07-16 | Outpatient (CLI) | payer OTHER ==
[~2022-07-16] MED LIST changes: +LIDOCAINE 1% MDV 20ML VIAL As Ordered ONE
[2022-07-16 10:52] VITALS: BP 131/89
== END ==
LOC: M IRPRO 10:09
PROVIDERS: ATTEND Specialist
DX: R18.8 Other ascites (principal)

== ENCOUNTER → 2022-07-23 | Outpatient (CLI) | payer OTHER ==
[~2022-07-23] MED LIST changes: -LIDOCAINE 1% MDV 20ML VIAL As Ordered ONE
[2022-07-23 10:27] VITALS: BP 104/72
== END ==
LOC: M IRPRO 09:48
PROVIDERS: ATTEND Specialist
DX: R18.8 Other ascites (principal)

== ENCOUNTER 2022-07-29 11:30 | Outpatient (RCR) | payer OTHER | END 2022-08-03 | LOC: M PT 11:30 | PROVIDERS: ATTEND Specialist | DX: C22.9 Malignant neoplasm of liver, not specified as primary or secondary (principal); R53.1 Weakness ==

== ENCOUNTER → 2022-07-30 | Outpatient (CLI) | payer OTHER ==
[~2022-07-30] MED LIST changes: +LIDOCAINE 1% MDV 20ML VIAL As Ordered ONE
[2022-07-30 12:30] VITALS: BP 104/66
== END ==
LOC: M IRPRO 09:17
PROVIDERS: ATTEND Specialist
DX: J90 Pleural effusion, not elsewhere classified (principal)

== ENCOUNTER 2022-08-05 09:59 | Outpatient (RCR) | payer OTHER ==
[~2022-08-05 09:59] MED LIST changes: -LIDOCAINE 1% MDV 20ML VIAL As Ordered ONE
[2022-08-18] MEDS ORDERED: ONDA-84 (14:52)
[2022-08-18] MEDS ORDERED: PROC10TA5 (14:52)
== END 2022-09-03 ==
LOC: M PT 09:59
PROVIDERS: ATTEND Specialist
DX: M62.81 Muscle weakness (generalized) (principal)

== ENCOUNTER → 2022-08-06 | Outpatient (CLI) | payer OTHER ==
[2022-08-06 10:20] VITALS: BP 110/83
[2022-08-06 11:04] LABS: INR 0.96; PARTIAL THROMBOPLASTIN TIME 28.2 SECONDS (24.8-34.2)
== END ==
LOC: M IRPRO 09:31
PROVIDERS: ATTEND Specialist
DX: R18.8 Other ascites (principal)

== ENCOUNTER → 2022-08-20 | Outpatient (CLI) | payer OTHER ==
[~2022-08-20] MED LIST changes: +ONDA-84; +PROC10TA5
[2022-08-20 10:17] VITALS: BP 95/33
== END ==
LOC: M IRPRO 09:39
PROVIDERS: ATTEND Specialist
DX: R18.8 Other ascites (principal)

== ENCOUNTER → 2022-09-03 | Outpatient (CLI) | payer OTHER ==
[2022-09-03 11:15] VITALS: BP 94/66
== END ==
LOC: M IRPRO 09:47
PROVIDERS: ATTEND Specialist
DX: R18.8 Other ascites (principal)

== ENCOUNTER → 2022-09-17 | Outpatient (CLI) | payer OTHER ==
[~2022-09-17] MED LIST changes: +LEVO25TA5 PO
[2022-09-17 10:42] VITALS: BP 106/75
== END ==
LOC: M IRPRO 09:48
PROVIDERS: ATTEND Specialist
DX: R18.8 Other ascites (principal)

== ENCOUNTER → 2022-09-24 | Outpatient (CLI) | payer OTHER ==
[~2022-09-24] MED LIST changes: +ISOVUE-370 76% 100ML VIAL As Ordered ONE
== END ==
LOC: M RAD 10:48
DX: C22.1 Intrahepatic bile duct carcinoma (principal); J90 Pleural effusion, not elsewhere classified
CPT/HCPCS: 71260; 74177; Q9967

== ENCOUNTER → 2022-09-24 | Outpatient (CLI) | payer OTHER ==
[~2022-09-24] MED LIST changes: -ISOVUE-370 76% 100ML VIAL As Ordered ONE; +LIDOCAINE 1% MDV 20ML VIAL As Ordered ONE
[2022-09-24 10:25] VITALS: BP 116/88
== END ==
LOC: M IRPRO 09:37
PROVIDERS: ATTEND Specialist
DX: R18.8 Other ascites (principal)

== ENCOUNTER → 2022-10-01 | Outpatient (CLI) | payer OTHER ==
[~2022-10-01] MED LIST changes: +ELIQ2.5T PO; -LIDOCAINE 1% MDV 20ML VIAL As Ordered ONE
[2022-10-01 12:39] VITALS: BP 118/86
== END ==
LOC: M IRPRO 12:02
PROVIDERS: ATTEND Specialist
DX: R18.8 Other ascites (principal)

== ENCOUNTER → 2022-10-08 | Outpatient (CLI) | payer OTHER ==
[~2022-10-08] MED LIST changes: +HYDR-3713 PO; +SENN1TAB41 PO
[2022-10-08 13:57] VITALS: BP 95/59
== END ==
LOC: M IRPRO 12:26
PROVIDERS: ATTEND Specialist
DX: R18.8 Other ascites (principal)

== ENCOUNTER 2022-10-15 13:56 | Emergency (ER) | payer OTHER ==
[~2022-10-15] VITALS: Ht 165.1 cm; Wt 43.2 kg
[~2022-10-15 13:56] MED LIST changes: -LEVO1TAB40 PO
[2022-10-15 16:20] LABS: BASO % 0.1 % (0.0-1.0); HEMATOCRIT 35.2 % (36.0-47.0); HEMOGLOBIN 11.3 g/dl (12.0-15.5); LYMPH # 0.4 10^3/uL (1.5-5.0); LYMPH % 2.4 % (24.0-44.0); MEAN CORPUSCULAR HEMOGLOBIN 28.3 pg (27.0-33.0); MEAN CORPUSCULAR HGB CONC 32.1 g/dl (32.0-36.5); MONO # 0.2 10^3/uL (0.0-0.8); MONO % 1.1 % (2.0-8.0); NEUTROPHILS # 15.2 10^3/uL (1.5-8.5); NEUTROPHILS % 95.9 % (36.0-66.0); PLATELET COUNT, AUTOMATED 191 10^3/uL (150-450); WHITE BLOOD COUNT 15.9 10^3/uL (4.0-10.0)
[2022-10-15 16:35] LABS: RSV AMPLIFICATION NEGATIVE (NEGATIVE)
[2022-10-15 16:37] LABS: ALBUMIN 1.6 G/DL (3.2-5.2); BILIRUBIN,DIRECT 0.2 MG/DL (<0.4); BILIRUBIN,TOTAL 0.3 MG/DL (0.3-1.2); CALCIUM LEVEL 7.3 MG/DL (8.5-10.1); CK-MB VALUE MASS 1.2 NG/ML (<3.6); CREATININE FOR GFR 1.33 MG/DL (0.55-1.30); GLOMERULAR FILTRATION RATE 44.3 (>51); TOTAL PROTEIN 4.2 G/DL (5.7-8.2)
[2022-10-15 16:39] LABS: MB/CK RELATIVE INDEX 2.85 (< OR =4)
[2022-10-15] MEDS ORDERED: PIPERACILLIN/TAZOBACTAM SOD 4.5 GM in D5W MINI-BAG PLUS 50 ML IV ONE (16:50)
[2022-10-15] MEDS ORDERED: ISOVUE-370 76% 100ML VIAL As Ordered ONE (17:00)
[2022-10-15] MEDS ORDERED: NS 1,000 ML IV ONE (18:55)
[2022-10-15 19:51] LABS: CALCIUM LEVEL 7.3 MG/DL (8.5-10.1); CREATININE FOR GFR 1.29 MG/DL (0.55-1.30); GLOMERULAR FILTRATION RATE 45.8 (>51); POTASSIUM SERUM 5.8 MMOL/L (3.5-5.1)
[2022-10-15] MEDS ORDERED: HumuLIN R (REGULAR) INSULIN (NovoLIN R) **100U/ML** PER UNIT IV STA (20:05)
[2022-10-15] MEDS ORDERED: CALCIUM GLUCONATE 1,000 MG in D5W MINI-BAG PLUS 100 ML IV ONE (20:05)
[2022-10-15] MEDS ORDERED: DEXTROSE 50% 50ML SYRINGE IV STA (20:05)
[2022-10-15] MEDS ORDERED: HOME MED LIST COMPLETE! XX SCH (20:45)
[2022-10-15] MEDS ORDERED: MORPHINE 2 MG/ML 1ML VIAL IV ONE (22:00)
[2022-10-16] MEDS ORDERED: MORPHINE 4 MG/ML 1ML VIAL IV ONE (00:45)
[2022-10-16 02:36] VITALS: BP 127/90
[2022-10-16] MEDS ORDERED: hydrALAZINE 20MG/ML 1ML VIAL IV STA (02:36)
[2022-10-16] MEDS ORDERED: LEVO1TAB40 PO ×2 (03:08→03:16)
[2022-10-16] MEDS ORDERED: LevoFLOXacin 750 MG TABLET PO ONE (03:15)
[2022-10-16 05:48] VITALS: BP 124/84
[2022-10-19] MEDS ORDERED: LACT10SO3 PO (09:07)
[2022-10-19] MEDS ORDERED: OMEP-173 PO (09:10)
[2022-10-19] MEDS ORDERED: OXYC1TAB23 PO (09:24)
== END 2022-10-16 05:53 | disposition left against medical advice (07) ==
LOC: M ED 13:56
DX: A41.9 Sepsis, unspecified organism (principal); J18.9 Pneumonia, unspecified organism; E87.1 Hypo-osmolality and hyponatremia; R79.9 Abnormal finding of blood chemistry, unspecified; I10 Essential (primary) hypertension; F41.9 Anxiety disorder, unspecified; F32.A Depression, unspecified; Z98.84 Bariatric surgery status; Z79.01 Long term (current) use of anticoagulants; Z79.899 Other long term (current) drug therapy
CPT/HCPCS: 36415; 71045; 71275; 74177; 74181; 76705; 80047; 80048; 80076; 82140; 82550; 82553; 83605; 83690; 84484; 85025; 87040; 87631; 93005; 93041; 96365; 96367; 96375; 96376; 99285; J0612; J1815; J2543; Q9967

== ENCOUNTER → 2022-10-15 | Outpatient (CLI) | payer OTHER ==
[~2022-10-15] MED LIST changes: -FURO20TA2; +FURO20TA2 PO; +LACT10SO3 PO; +LEVO1TAB40 PO; -METH5TA; +METH5TA PO; -PROC10TA5; +PROC10TA5 PO
[2022-10-15 10:58] VITALS: BP 92/72
== END ==
LOC: M IRPRO 10:05
PROVIDERS: ATTEND Specialist
DX: R18.8 Other ascites (principal)